=== PATIENT | male | born 1955 | race Caucasian/White ===

== ENCOUNTER → 2016-09-15 | Outpatient (CLI) | payer MEDICARE ==
--- NOTE | ~2016-09-15 | EKG ---
PATIENT: ZEYNEP NEELY UNIT #: [id number] Ventricular Rate: 77 BPM Atrial Rate: 77 BPM P-R Interval: 188 ms QRS Duration: 106 ms Q-T Interval: 380 ms QTC Calculation(Bezet): 430 ms P [place]: 51 degrees Calculated R [place]: -9 degrees Calculated T [place]: 45 degrees Diagnosis Line: Normal sinus rhythm Diagnosis Line: Minimal voltage criteria for LVH, may be normal Diagnosis Line: variant Diagnosis Line: Borderline ECG Diagnosis Line: No previous ECGs available Diagnosis Line: Confirmed by LORETTA ROSAS MD ([id number]) on Diagnosis Line: 09/17/2016 7:29:00 AM INTERPRETING MD: RALPH LOVE
--- NOTE | ~2016-09-15 | CR63 ---
[facility] A Service of [facility] RADIOLOGY TEXT RESULTS PATIENT: ZEYNEP NEELY LOCATION: [facility] : 55 UNIT #: [id number] AGE: [address]: MODESTO WIN MD SEX: M ORDER DR: [id number] [facility] [address] [place], [place] [address] [id number] O MR#: [id number] Acc #: [id number] NAME: ZEYNEP NEELY : 1955 SEX: M STUDY DATE/TIME: 09/15/2016 14:52 UNIT: [facility] ROOM: STUDY DESCRIPTION: CR Chest 2 View Attending Physician: Mod[place] Win D.P.M. Referring Physician: Mod[place] Win D.P.M. Ordering Physician: [place] Win D.P.M. Primary Care Physician: Tapan Looney M.D. MEDICAL IMAGING REPORT This report is preliminary unless electronic signature is present EXAM Chest HISTORY 61-year-old male patient preop clearance for foot surgery. COMPARISON STUDIES None. FINDINGS PA and lateral chest views show mild cardiac enlargement. Hilar structures and mediastinal contours are preserved. Mild elevation of the right hemidiaphragm due to eventration. IMPRESSION Mild cardiac enlargement. No acute chest finding. Dictated by... Anam Batista M.D. THIS IS AN ELECTRONICALLY VERIFIED REPORT Anam Batista M.D. at 09/16/2016 7:14 AM JBB/pcl TD: 09/15/2016 22:48 JOB #: [id number] MEDICAL IMAGING REPORT Page 1 of 1 COPY
[2016-09-15 14:48] LABS: HEMATOCRIT 41.6 % (38.0-50.0); HEMOGLOBIN 14.4 gm/dL (13.0-16.0); MEAN CELL VOLUME 87.8 FL (83-96); MEAN CORPUSCULAR HEMOGLOBIN 30.3 PG (28-34); MEAN CORPUSCULAR HGB CONC 34.5 g/dL (30-36); RED BLOOD COUNT 4.74 X10e (3.90-5.60); RED CELL DISTRIBUTION WIDTH 13.4 % (11.0-15.5); WHITE BLOOD COUNT 7.4 X10e3 (4.0-10.5)
[2016-09-15 14:59] LABS: PARTIAL THROMBOPLASTIN TIME 27.2 SECONDS (23.5-31.3); PROTHROMBIN TIME (PATIENT) 10.4 SECONDS (10.0-11.7)
[2016-09-15 15:06] LABS: BUN/CREATININE RATIO 18.88; CALCIUM SERUM 9.5 mg/dL (8.4-10.2); CREATININE SERUM 0.9 mg/dL (0.6-1.4); GLOM FILT RATE Estimated 91.9 mL/min (>60); POTASSIUM 4.1 mmol/L (3.5-5.1)
== END | disposition home or self-care (01) ==
LOC: CLAB 14:01
PROVIDERS: Podiatrist
DX: Z01.818 Encounter for other preprocedural examination (principal); I51.7 Cardiomegaly
CPT/HCPCS: 36415; 71020; 80048; 85027; 85610; 85730; 93005

== ENCOUNTER 2016-10-14 00:01 | Emergency (ER) | payer MEDICARE ==
[~2016-10-14] VITALS: Ht 177.8 cm; Wt 90.7 kg
== END 2016-10-14 02:36 | disposition home or self-care (01) ==
LOC: CED 00:01
DX: Z48.01 Encounter for change or removal of surgical wound dressing (principal); M79.674 Pain in right toe(s); G89.29 Other chronic pain; I10 Essential (primary) hypertension; E11.9 Type 2 diabetes mellitus without complications; F41.9 Anxiety disorder, unspecified; F32.9 Major depressive disorder, single episode, unspecified; K21.9 Gastro-esophageal reflux disease without esophagitis; F20.9 Schizophrenia, unspecified
CPT/HCPCS: 99282